=== PATIENT | male | born 1970 ===

== ENCOUNTER 2021-03-22 05:18 | Emergency (ER) | payer SELFPAY ==
[2021-03-22 05:30] VITALS: BP 135/99
[2021-03-22] MEDS ORDERED: FAMOTIDINE 20 MG TAB PO ONE (05:41)
[2021-03-22] MEDS ORDERED: HYDROcodone/ACETAMINOPHEN 5-325 MG TAB PO ONE (05:41)
--- NOTE | 2021-03-22 05:44 | Emergency Department Report ---
HPI <MEENA GARCIA - Last Filed: 03/22/21 09:06> - HPI HPI: 51-year-old sent to the emergency department with a complaint of upper abdominal pain that has been going on for 6 months overall, but significantly worsened over the past 2 days. Currently the patient says that the pain is 7 out of 10 in intensity, but sometimes it will be 10 out of 10. He describes it as a sharp pain and also feels as if something is scratching him from the inside. No known aggravating or alleviating factors. His only past medical history is prediabetes. He has not taken anything for symptoms prior to presentation t alexis. He denies any fever, diarrhea, constipation, back pain, chest pain, but does complain of decreased appetite and feeling as if food and drink has a very slow transit. <TUCKER GORE - Last Filed: 03/26/21 06:01> - General Chief Complaint: Abdominal Pain Time Seen by Provider: 03/22/21 05:40 ED Past Medical Hx <MEENA GARCIA - Last Filed: 03/22/21 09:06> - Past Medical History Previous Medical History?: No - Surgical History Past Surgical History?: No <TUCKER GORE - Last Filed: 03/26/21 06:01> - Medications Home Medications: Home Medications Medication Instructions Recorded Confirmed Last Taken Type Famotidine [Pepcid] 20 mg PO BID #30 tablet 03/22/21 Unknown Rx traMADoL [Ultram] 50 mg PO Q6HR PRN #14 tablet 03/22/21 Unknown Rx ED Review of Systems ROS: Stated complaint: STOMACH PAIN Other details as noted in HPI <MEENA GARCIA - Last Filed: 03/22/21 09:06> ROS: Stated complaint: STOMACH PAIN Other details as noted in HPI Comment: All other systems reviewed and negative Constitutional: denies: chills, fever Eyes: denies: eye pain, vision change ENT: denies: ear pain, throat pain Respiratory: denies: cough, shortness of breath Cardiovascular: denies: chest pain, palpitations Gastrointestinal: abdominal pain. denies: vomiting, diarrhea, constipation Genitourinary: denies: dysuria, discharge Musculoskeletal: denies: back pain, arthralgia Skin: denies: rash, lesions Neurological: denies: headache, weakness <TUCKER GORE - Last Filed: 03/26/21 06:01> Physical Exam - Physical Exam Vital Signs: Vital Signs 03/22/21 05:30 Temperature 98 F Pulse Rate 93 H Respiratory 18 Rate Blood Pressure 135/99 [Right] O2 Sat by Pulse 99 Oximetry <MEENA GARCIA - Last Filed: 03/22/21 09:06> - Physical Exam Vital Signs: Vital Signs 03/22/21 05:30 Temperature 98 F Pulse Rate 93 H Respiratory 18 Rate Blood Pressure 135/99 [Right] O2 Sat by Pulse 99 Oximetry Physical Exam: GENERAL: The patient is well-developed well-nourished. HENT: Normocephalic. Atraumatic. Patient has moist mucous membranes. EYES: Extraocular motions are intact. NECK: Supple. Trachea is midline. CHEST/LUNGS: Clear to auscultation. There is no respiratory distress noted. HEART/CARDIOVASCULAR: Regular. There is no tachycardia. There is no murmur. ABDOMEN: Abdomen is soft. Upper abdominal tenderness to palpation. No guarding. Patient has normal bowel sounds. There is no abdominal distention. SKIN: Skin is warm and dry. NEURO: The patient is awake, alert, and oriented. The patient is cooperative. Normal speech. MUSCULOSKELETAL: There is no tenderness or deformity. There is no limitation range of motion. <TUCKER GORE S - Last Filed: 03/26/21 06:01> ED Course Vital Signs 03/22/21 05:30 Temperature 98 F Pulse Rate 93 H Respiratory 18 Rate Blood Pressure 135/99 [Right] O2 Sat by Pulse 99 Oximetry - Reevaluation(s) Reevaluation #1: 03/22/21 09:06 Patient improved <MEENA GARCIA - Last Filed: 03/22/21 09:06> Vital Signs 03/22/21 05:30 Temperature 98 F Pulse Rate 93 H Respiratory 18 Rate Blood Pressure 135/99 [Right] O2 Sat by Pulse 99 Oximetry <TUCKER GORE - Last Filed: 03/26/21 06:01> ED Medical Decision Making - Lab Data Result diagrams: 03/22/21 05:45 03/22/21 05:45 - Radiology Data Radiology results: report reviewed (Acute abdominal surgery, CT abdomen pelvis), image reviewed (Acute abdominal series, CT abdomen pelvis) interpreted by me: Acute abdominal series [id number] stool. No free air. No evidence of obstruction [address] [address] X Ray Report Signed Patient: DIMITRI HENDRICKS MR#: [id number] 45 : 1970 Acct:[id number] Age/Sex: 51 / M ADM Date: 03/22/21 Loc: ED Attending Dr: Ordering Physician: TUCKER GORE DO Date of Service: 03/22/21 Procedure(s): XR abd series w cxr 1V Accession Number(s): [id number] cc: TUCKER GORE DO Fluoro Time In Minutes: XR abd series w cxr 1V INDICATION / CLINICAL INFORMATION: Abd pain 6 MONTHS. COMPARISON: None available. FINDINGS: TUBES / LINES: None. BOWEL GAS PATTERN: Bowel gas pattern is nonobstructive. Moderate colonic stool burden. FREE AIR / EXTRALUMINAL GAS: None seen. ADDITIONAL FINDINGS: No significant additional findings. CHEST: Lungs are clear. No pleural effusion or pneumot horax. Heart size is normal. IMPRESSION: No acute abnormality. Moderate colonic stool burden, compatible with constipation. Signer Name: Wendy Napoles MD Signed: 03/22/2021 6:26 AM Workstation Name: [id number] Transcribed By: JS Dictated By: WENDY NAPOLES MD Electronically Authenticated By: WENDY NAPOLES MD Signed Date/Time: 03/22/21625 DD/ 4 TD/TT: Print Cancel [address] [address] Cat Scan Report Signed Patient: DIMITRI GARCIA R#: [id number] : 1970 Acct:[id number] Age/Sex: 51 / M ADM Date: 03/22/21 Loc: ED Attending Dr: Ordering Physician: MEENA GARCIA MD Date of Service: 03/22/21 Procedure(s): CT abdomen pelvis w con Accession Number(s): [id number] cc: MEENA GARCIA MD CT ABDOMEN AND PELVIS WITH CONTRAST INDICATION / CLINICAL INFORMATION: Epigastric pain x6 months worsening x days OMNI 300 100 ML. TECHNIQUE: Axial CT images were obtained through the abdomen and pelvis after 100 cc Omnipaque 300 IV contrast. Sagittal and coronal reformatted images. All CT scans at this location are performed using CT dose reduction for ALARA by means of automated exposure control. COMPARISON: Abdominal series performed earlier today FINDINGS: LOWER CHEST: No significant abnormality. LIVER: No significant abnormality. GALLBLADDER: No significant abnormality. BILE DUCTS: No significant abnormality. PANCREAS: No significant abnormality. SPLEEN: No significant abnormality. ADRENALS: No significant abnormality. RIGHT KIDNEY and URETER: No significant abnormality. LEFT KIDNEY and URETER: No significant abnormality. 2.1 cm simple cyst near the superior pole is noted. STOMACH and SMALL BOWEL: No significant abnormality. COLON: No significant abnormality. APPENDIX: No significant abnormality. PERITONEUM: No free fluid. No free air. No fluid collection. LYMPH NODES: No significant adenopathy. AORTA and ARTERIES: No significant abnormality. IVC and VEINS: No significant abnormality. URINARY BLADDER: No significant abnormality. REPRODUCTIVE ORGANS: No significant abnormality. ADDITIONAL FINDINGS: None. SKELETAL SYSTEM: Mild dextrocurvature of the lumbar spine with mild multilevel degenerative changes. No acute osseous abnormality. IMPRESSION: No significant abnormality. Signer Name: Tevin Aaron Jr, MD Signed: 03/22/2021 8:48 AM Workstation Name: [id number] Transcribed By: TTR Dictated By: TEVIN AARON JR, MD Electronically Authenticated By: TEVIN AARON JR, MD Signed Date/Time: 03/22/21847 DD/ 5 TD/TT: Print Cancel - Differential Diagnosis Pancreatitis, pancreatic mass, gastritis, peptic ulcer disease, cholelithia <MEENA GARCIA - Last Filed: 03/22/21 09:06> - Lab Data Result diagrams: 03/22/21 05:45 03/22/21 05:45 - Medical Decision Making This patient presents with upper abdominal pain that appears to be a chronic issue but has significantly worsened over the past 2 days. On examination the abdomen is soft, nondistended and nontoxic in appearance. However, there is reproducible upper abdominal tenderness to palpation. His initial vital signs are reassuring including being afebrile. I have ordered a CBC, CMP, lipase and urinalysis. The patient will have an acute abdominal series. I have ordered for the patient to have a [place] and a Pepcid. This will be signed out to the oncoming physician, Dr. Garcia, to follow- up on the lab and imaging results and assist with further evaluation and disposition. <TUCKER GORE S - Last Filed: 03/26/21 06:01> Critical care attestation.: If time is entered above; I have spent that time in minutes in the direct care of this critically ill patient, excluding procedure time. <MEENA GARCIA K - Last Filed: 03/22/21 09:06> Critical Care Time: No Critical care attestation.: If time is entered above; I have spent that time in minutes in the direct care of this critically ill patient, excluding procedure time. <TUCKER GORE S - Last Filed: 03/26/21 06:01> ED Disposition Is pt being admited?: No Does the pt Need Aspirin: No Time of Disposition: 08:59 <MEENA GARCIA - Last Filed: 03/22/21 09:06> Is pt being admited?: No <TUCKER GORE S - Last Filed: 03/26/21 06:01> Clinical Impression: Epigastric abdominal pain Disposition: 01 HOME / SELF CARE / HOMELESS Condition: Stable Instructions: Abdominal Pain, Adult, Peptic Ulcer, [id number] Additional Instructions: Return to the emergency department should you develop worsening symptoms, inability to tolerate food or liquids, high fever or any other concerns Prescriptions: Famotidine [Pepcid] 20 mg PO BID #30 tablet traMADoL [Ultram] 50 mg PO Q6HR PRN #14 tablet PRN Reason: Pain Referrals: [facility] [Provider Group] - 3-5 Days EDIE ARMENTA MD [Staff Physician] - 3-5 Days (Dr. Armenta is a emergency service restorer. Please follow-up with him for further evaluation)
[2021-03-22 06:11] LABS: Basophils % (Auto) 0.6 % (0.0-1.8); Eosinophils # (Auto) 0.1 K/mm3 (0.0-0.4); Eosinophils % (Auto) 1.3 % (0.0-4.3); Hematocrit 42.9 % (35.5-45.6); Hemoglobin 14.5 gm/dl (11.8-15.2); Lymphocytes # (Auto) 1.2 K/mm3 (1.2-5.4); Lymphocytes % (Auto) 19.4 % (13.4-35.0); Mean Corpuscular HGB Conc 34 % (32-34); Mean Corpuscular Volume 84 fl (84-94); Monocytes # (Auto) 0.7 K/mm3 (0.0-0.8); Monocytes % (Auto) 11.7 % (0.0-7.3); Platelet Count 194 K/mm3 (140-440); Red Blood Count 5.09 M/mm3 (3.65-5.03); Red Cell Distribution Width 13.5 % (13.2-15.2)
[2021-03-22 06:30] LABS: Alanine Aminotransferase 33 units/L (7-56); Albumin 4.6 g/dL (3.9-5); BUN/Creatinine Ratio 13; Blood Urea Nitrogen 13 mg/dL (9-20); Calcium 9.2 mg/dL (8.4-10.2); Hemolysis Index 5
--- NOTE | 2021-03-22 06:30 | XRay Report ---
XR abd series w cxr 1V INDICATION / CLINICAL INFORMATION: Abd pain 6 MONTHS. COMPARISON: None available. FINDINGS: TUBES / LINES: None. BOWEL GAS PATTERN: Bowel gas pattern is nonobstructive. Moderate colonic stool burden. FREE AIR / EXTRALUMINAL GAS: None seen. ADDITIONAL FINDINGS: No significant additional findings. CHEST: Lungs are clear. No pleural effusion or pneumothorax. Heart size is normal. IMPRESSION: No acute abnormality. Moderate colonic stool burden, compatible with constipation. Signer Name: King Napoles MD Signed: 03/22/2021 6:26 AM Workstation Name: [id number]
[2021-03-22 06:37] LABS: Bilirubin,Direct < 0.2 mg/dL (0-0.2)
[2021-03-22 08:11] LABS: Bilirubin,Urine NEG (Negative); Blood,Urine NEG (Negative); Color,Urine Yellow (Yellow); Mucus,Urine 3+ /HPF; Protein,Urine <15 mg/dL mg/dL (Negative); Urobilinogen,Urine < 2.0 mg/dL (<2.0)
--- NOTE | 2021-03-22 08:52 | Cat Scan Report ---
CT ABDOMEN AND PELVIS WITH CONTRAST INDICATION / CLINICAL INFORMATION: Epigastric pain x6 months worsening x days OMNI 300 100 ML. TECHNIQUE: Axial CT images were obtained through the abdomen and pelvis after 100 cc Omnipaque 300 IV contrast. Sagittal and coronal reformatted images. All CT scans at this location are performed using CT dose re duction for ALARA by means of automated exposure control. COMPARISON: Abdominal series performed earlier today FINDINGS: LOWER CHEST: No significant abnormality. LIVER: No significant abnormality. GALLBLADDER: No significant abnormality. BILE DUCTS: No significant abnormality. PANCREAS: No significant abnormality. SPLEEN: No significant abnormality. ADRENALS: No significant abnormality. RIGHT KIDNEY and URETER: No significant abnormality. LEFT KIDNEY and URETER: No significant abnormality. 2.1 cm simple cyst near the superior pole is note d. STOMACH and SMALL BOWEL: No significant abnormality. COLON: No significant abnormality. APPENDIX: No significant abnormality. PERITONEUM: No free fluid. No free air. No fluid collection. LYMPH NODES: No significant adenopathy. AORTA and ARTERIES: No significant abnormality. IVC and VEINS: No significant abnormality. URINARY BLADDER: No significant abnormality. REPRODUCTIVE ORGANS: No significant abnormality. ADDITIONAL FINDINGS: None. SKELETAL SYSTEM: Mild dextrocurvature of the lumbar spine with mild multilevel degenerative changes. No acute osseous abnormality. IMPRESSION: No significant abnormality. Signer Name: Tevin Aaron Jr, MD Signed: 03/22/2021 8:48 AM Workstation Name: [id number]
== END 2021-03-22 09:09 | disposition home or self-care (01) ==
LOC: ED 05:18
DX: R10.13 Epigastric pain (principal); Z79.899 Other long term (current) drug therapy
CPT/HCPCS: 36415; 74022; 74177; 80048; 80076; 81001; 83690; 85025; 99284; Q9967